=== PATIENT | male | born 1970 | race Two or more races ===

== ENCOUNTER → 2020-12-12 14:47 | Outpatient (BNVA) | payer SELFPAY | PROVIDERS: Visit Provider Physician Assistant | DX: Z02.79 Encounter for issue of other medical certificate (principal) ==

== ENCOUNTER 2021-06-12 07:46 | Emergency (ER) | payer OTHER, SELFPAY ==
--- NOTE | ~2021-06-12 | XR_ITS ---
EXAMINATION: XR HAND, RIGHT CLINICAL INFORMATION: Trauma COMPARISON: None TECHNIQUE: PA, lateral, and oblique views of the right hand. FINDINGS: Bone alignment is normal. No fracture or dislocation is seen. Joint spaces are normal. There is a dressing over the dorsal DIP joint of the third finger. This lowers the sensitivity for detection of soft tissue foreign body. If there is clinical suspicion of foreign body, repeat exam without the overlying dressing should be considered. There may be soft tissue swelling over the volar distal tuft of the third finger. XR/XR hand RT 2V IMPRESSION: No fracture is seen. Surgical dressing over the dorsal DIP joint of the third finger. Repeat imaging without the dressing should be considered if there is clinical suspicion of soft tissue foreign body.
--- NOTE | 2021-06-12 08:24 | ED_ITS ---
HPI - Extremity Problem General Chief complaint: Wound/Laceration <MELCHOR Giraldo Last Filed: 06/12/21 11:28> Stated complaint: finger injury - work relate <MELCHOR Giraldo Last Filed: 06/12/21 11:28> Time Seen by Provider: 06/12/21 08:24 <MELCHOR Giraldo Last Filed: 06/12/21 11:28> Source: patient and translator interpreter <MELCHOR Giraldo Last Filed: 06/12/21 11:28> Mode of arrival: ambulatory <MELCHOR Giraldo Last Filed: 06/12/21 11:28> Limitations: language barrier <MELCHOR Giraldo Last Filed: 06/12/21 11:28> History of Present Illness HPI Narrative: Patient is a 51 year old male presenting to the emergency department today with a right 3rd finger injury. 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 Patient denies any other injury from the incident. Patient states he does not know when his last tetanus shot was. Patient denies any numbness or tingling in the right upper extremity. Patient denies any loss of consciousness with the incident. Patient denies any dizziness, lightheadedness, abdominal pain, nausea, vomiting, fever, chills, blurry vision, double vision, loss of vision, chest pain, difficulty breathing, shortness of breath, back pain, night sweats, pain with urination, increased urinary frequency, increased urinary urgency, blood in his urine or stool, syncope or a near syncopal episode, bowel incontinence, bladder incontinence, bowel retention, bladder retention, or any other complaints at this time. <MELCHOR Giraldo - Last Filed: 06/12/21 11:28> MD Complaint: extremity pain <MELCHOR Giraldo Last Filed: 06/12/21 11:28> Onset (ago): minute(s) <MELCHOR Giraldo Last Filed: 06/12/21 11:28> Pain Consistency: constant <MELCHOR Giraldo Last Filed: 06/12/21 11:28> Location: right (3rd finger) <MELCHOR Giraldo Last Filed: 06/12/21 11:28> Severity scale (1-10): 4 <MELCHOR Giraldo - Last Filed: 06/12/21 11:28> Quality: aching <MELCHOR Giraldo - Last Filed: 06/12/21 11:28> Radiation: none <MELCHOR Giraldo Last Filed: 06/12/21 11:28> Relieving factors: nothing <MELCHOR Giraldo - Last Filed: 06/12/21 11:28> Exacerbating factors: nothing <MELCHOR Giraldo - Last Filed: 06/12/21 11:28> Associated symptoms: denies other symptoms <MELCHOR Giraldo - Last Filed: 06/12/21 11:28> Related Data Home medications: Previous Rx's Medication Instructions Recorded cephalexin 500 mg capsule 500 mg PO Q6H 7 Days #28 cap 06/12/21 <MELCHOR Giraldo Last Filed: 06/12/21 11:28> Allergies/Adverse reactions: Allergies Allergy/AdvReac Type Severity Reaction Status Date / Time No Known Allergies Allergy Verified 06/12/21 08:37 <MELCHOR Giraldo - Last Filed: 06/12/21 11:28> Review of Systems Constitutional: Constitutional: Reports no additional constitutional complaints, Denies chills, Denies fever(s) and Denies night sweats <MELCHOR Giraldo - Last Filed: 06/12/21 11:28> Eyes: Eyes: Reports no additional eye complaints, Denies blurry vision, Denies change in vision, Denies diplopia, Denies eye discharge, Denies loss of vision and Denies eye pain <MELCHOR Giraldo - Last Filed: 06/12/21 11:28> ENT: Denies dizziness <MELCHOR Giraldo - Last Filed: 06/12/21 11:28> Cardiovascular: Cardiovascular: Reports no additional cardiovascular complaints, Denies chest pain, Denies lightheadedness, Denies Loss of Consciousness and Denies dyspnea <MELCHOR Giraldo - Last Filed: 06/12/21 11:28> Respiratory: Respiratory: Reports no additional respiratory complaints and Denies dyspnea <MELCHOR Giraldo - Last Filed: 06/12/21 11:28> Gastrointestinal: Gastrointestinal: Reports no additional gastrointestinal complaints, Denies abdominal pain, Denies melena, Denies hematochezia, Denies change in bowel habits and Denies change in stool character <MELCHOR Giraldo - Last Filed: 06/12/21 11:28> Genitourinary: Genitourinary: Reports no additional male genitourinary complaints, Denies hematuria, Denies oliguria, Denies difficulty urinating, Denies dysuria, Denies urinary frequency, Denies urinary hesitancy, Denies urinary incontinence and Denies urinary urgency <MELCHOR Giraldo - Last Filed: 06/12/21 11:28> Musculoskeletal: Musculoskeletal: Reports no additional musculoskeletal complaints, Denies numbness and Denies tingling <MELCHOR Giraldo - Last Filed: 06/12/21 11:28> Integumentary/Breasts: Comments: laceration to the right 3rd finger <MELCHOR Giraldo - Last Filed: 06/12/21 11:28> Neurologic: Denies dizziness, Denies loss of vision, Denies numbness and Denies tingling <MELCHOR Giraldo - Last Filed: 06/12/21 11:28> Psychiatric: Psychiatric: Reports no additional psychiatric complaints <MELCHOR Giraldo - Last Filed: 06/12/21 11:28> Endocrine: Endocrine: Reports no additional endocrine complaints <MELCHOR Giraldo - Last Filed: 06/12/21 11:28> Hematologic/Lymphatic: Hematologic/Lymphatic: Reports no additional hematologic/lymphatic complaints <MELCHOR Giraldo - Last Filed: 06/12/21 11:28> Allergic/Immunologic: Allergic/Immunologic: Reports no additional allergic/immunologic complaints <MELCHOR Giraldo - Last Filed: 06/12/21 11:28> PMFSH Past Medical History Attestation statement: The following information was validated with the patient. <MELCHOR Giraldo - Last Filed: 06/12/21 11:28> Medical History: Medical History No known health problems <MELCHOR Giraldo Last Filed: 06/12/21 11:28> Social History Social History: Social History Advance Directives: No Advance Directives Information Provided: No <MELCHOR Giraldo - Last Filed: 06/12/21 11:28> Physical Exam Vital Signs: Vital Signs: Last Vital Signs Temp 97.9 F 06/12/21 09:15 Pulse 61 06/12/21 09:15 Resp 15 06/12/21 09:15 BP 139/79 06/12/21 09:15 Pulse Ox 97 06/12/21 09:15 BMI result Body Mass Index 32.1 <MELCHOR Giraldo - Last Filed: 06/12/21 11:28> Vital Signs: Last Vital Signs Temp 97.9 F 06/12/21 09:15 Pulse 61 06/12/21 09:15 Resp 15 06/12/21 09:15 BP 139/79 06/12/21 09:15 Pulse Ox 97 06/12/21 09:15 BMI result Body Mass Index 32.1 <Fran Hdz MD - Last Filed: 06/12/21 16:28> Const: General: cooperative, no acute distress, alert and awake <MELCHOR Giraldo - Last Filed: 06/12/21 11:28> Nutritional Appearance: well nourished <MELCHOR Giraldo - Last Filed: 06/12/21 11:28> Orientation/consciousness: patient oriented x3 <MELCHOR Giraldo - Last Filed: 06/12/21 11:28> Limitations: no limitations <MELCHOR Giraldo Last Filed: 06/12/21 11:28> HENMT: Head: Yes normal to inspection and Yes atraumatic <MELCHOR Giraldo - Last Filed: 06/12/21 11:28> Ears: hearing grossly normal bilaterally and external ears normal <MELCHOR Giraldo - Last Filed: 06/12/21 11:28> General nose exam: Normal external nose present, no nasal discharge noted and no epistaxis <MELCHOR Giraldo - Last Filed: 06/12/21 11:28> Face and sinus: Yes normal facial exam, No abrasion and No laceration <MELCHOR Giraldo - Last Filed: 06/12/21 11:28> Mouth: Normal oral and palatal mucosa present, no drooling and no muffled voice <Nathaly Davis OR - Last Filed: 06/12/21 11:28> Eyes: General: appearance normal, both eyes and all related structures <Nathaly Davis OR - Last Filed: 06/12/21 11:28> Periorbital: periorbital findings normal <Nathaly Davis OR - Last Filed: 06/12/21 11:28> Eyelids: Yes eyelids normal <Nathaly Davis OR - Last Filed: 06/12/21 11:28> Conjunctivae: conjunctivae normal <Nathaly Davis, OR - Last Filed: 06/12/21 11:28> Pupils: Equal, round and reactive pupils present <Nathaly Davis OR - Last Filed: 06/12/21 11:28> EOM: EOMs intact bilaterally <Nathaly Davis OR - Last Filed: 06/12/21 11:28> Neck: Neck: Yes normal visual inspection, Yes full ROM and Yes no lymphadenopathy <Nathaly Davis OR - Last Filed: 06/12/21 11:28> Chest: Chest palpation & inspection: normal inspection of the chest <Nathaly Davis OR - Last Filed: 06/12/21 11:28> Resp: Effort & Inspection: normal respiratory effort and able to speak in complete sentences <Nathaly Davis OR - Last Filed: 06/12/21 11:28> Auscultation: clear to auscultation bilaterally <Nathaly Davis OR - Last Filed: 06/12/21 11:28> Cardio: Rate: regular rate <Nathaly Davis OR - Last Filed: 06/12/21 11:28> Rhythm: regular rhythm <Nathaly Davis OR - Last Filed: 06/12/21 11:28> GI: Inspection: Yes normal to inspection <Nathaly Davis OR - Last Filed: 06/12/21 11:28> Skin: Other: 1.5cm laceration to the dorsal aspect of the right 3rd digit just inferior to the DIP joint <Nathaly Davis OR - Last Filed: 06/12/21 11:28> Neuro: General: patient oriented x3 and moves all extremities <Nathaly Davis OR - Last Filed: 06/12/21 11:28> Cranial nerves: Yes Equal, round and reactive pupils present <Nathaly Davis MELCHOR - Last Filed: 06/12/21 11:28> Cognition (Neuro): normal cognition <Nathaly Davis MELCHOR - Last Filed: 06/12/21 11:28> Motor exam (neuro): 5/5 motor strength present throughout <Nathaly DavisMELCHOR - Last Filed: 06/12/21 11:28> Sensory Exam: Normal double simultaneous stimulation for sensation <Nathaly DavisMELCHOR - Last Filed: 06/12/21 11:28> Coordination: [id number] test normal <Nathaly DavisMELCHOR - Last Filed: 06/12/21 11:28> Extrem: General: Yes full ROM and Yes capillary refill normal <Nathaly DavisMELCHOR - Last Filed: 06/12/21 11:28> Psych: Appearance: grossly normal <Nathaly DavisMELCHOR - Last Filed: 06/12/21 11:28> Mental Status: mental status grossly normal <Nathaly DavisMELCHOR - Last Filed: 06/12/21 11:28> Affect: normal affect <Nathaly DavisMELCHOR - Last Filed: 06/12/21 11:28> Attitude: cooperative <Nathaly DavisMELCHOR - Last Filed: 06/12/21 11:28> Thought process: Normal thought process present <Nathaly DavisMELCHOR - Last Filed: 06/12/21 11:28> Thought content: Normal thought content present <Nathaly DavisMELCHOR - Last Filed: 06/12/21 11:28> Insight: Good insight present (Psych) <Nathaly DavisMELCHOR - Last Filed: 06/12/21 11:28> Course Course Course Narrative: Patient's right hand x-ray impression was: No fracture, surgical dressing over the dorsal DIP joint of the third finger. Repeat imaging without the dressing should be considered if there is clinical suspicion of soft tissue foreign body. <Nathaly DavisMELCHOR - Last Filed: 06/12/21 11:28> MDM - Extremity (Nontraumatic) MDM Narrative Medical decision making narrative: Patient is a 51 year old male presenting to the emergency department today with a right 3rd finger laceration. Patient's physical exam showed a 1.5cm laceration to the dorsal aspect of the right 3rd finger, just inferior to the DIP joint. Patient's ROM, circulation, strength, and sensation were in tact to the entire right upper extremity including the right fingers, right hand, right wrist, right forearm, right elbow, and right upper arm. Patient's right hand x-ray showed no acute process. I explained my physical exam findings as well as all test results to the patient. I answered all questions asked by the patient. Patient's laceration was repaired, per procedure note, that incident. I stressed the importance of the patient having his sutures removed in 10-14 days. I stressed the importance to the patient keeping the sutured area clean and dry. I stressed the importance to the patient performing daily wound checks, and daily dressing changes. I stressed the importance of the patient taking his medication as prescribed. I stressed the importance of the patient following up with his primary care provider. I stressed the importance of the patient returning to the emergency department immediately if his symptoms were to worsen or if he were to develop any dizziness, shortness of breath, difficulty breathing, chest pain, blurry vision, loss of vision, nausea, vomiting, abdominal pain, fever, chills, back pain, or any other complaints. Patient verbalized agreement and understanding with this treatment plan and discharge. <MELCHOR Giraldo Last Filed: 06/12/21 11:28> Differential Diagnosis Differential diagnosis: Unlikely gout (Laceration, abrasion, finger injury) <MELCHOR Giraldo Last Filed: 06/12/21 11:28> Medical Records Attestation: I reviewed the patient's medical records. <MELCHOR Giraldo Last Filed: 06/12/21 11:28> Procedures Laceration Laceration 1: Site: hand (right 3rd finger) <MELCHOR Giraldo Last Filed: 06/12/21 11:28> Side (If applicable): right <MELCHOR Giraldo Last Filed: 06/12/21 11:28> Size (cm): 1.5 <MELCHOR Giraldo Last Filed: 06/12/21 11:28> Description: linear <MELCHOR Giraldo Last Filed: 06/12/21 11:28> Depth: simple, single layer <MELCHOR Giraldo Last Filed: 06/12/21 11:28> Local Anesthetic: lidocaine 1% and with epi <MELCHOR Giraldo - Last Filed: 06/12/21 11:28> Amount of anesthesia used (mL): 2 <MELCHOR Giraldo - Last Filed: 06/12/21 11:28> Pre-repair: irrigated extensively and deep structures intact <MELCHOR Giraldo - Last Filed: 06/12/21 11:28> Skin layer closed with: nylon <MELCHOR Giraldo - Last Filed: 06/12/21 11:28> Size (cm): 5-0 <MELCHOR Giraldo - Last Filed: 06/12/21 11:28> Number of sutures: 5 <MELCHOR Giraldo - Last Filed: 06/12/21 11:28> Technique: simple, interrupted <MELCHOR Giraldo - Last Filed: 06/12/21 11:28> Technique: simple, interrupted <MELCHOR Giraldo - Last Filed: 06/12/21 11:28> Discharge Plan Discharge Clinical Impression: Laceration <MELCHOR Giraldo - Last Filed: 06/12/21 11:28> Patient Disposition: Home, Self-Care <MELCHOR Giraldo - Last Filed: 06/12/21 11:28> Instructions: Finger Laceration (ED) <MELCHOR Giraldo - Last Filed: 06/12/21 11:28> Additional Instructions: Have sutures removed in 10-14 days. Do NOT soak sutured area. Keep sutured area covered during all activity. <MELCHOR Giraldo - Last Filed: 06/12/21 11:28> Prescriptions: New cephalexin 500 mg capsule 500 mg PO Q6H 7 Days Qty: 28 RF: 0 <MELCHOR Giraldo - Last Filed: 06/12/21 11:28> Interventions: ED Discharge Assessment Last Done: 06/12/21 11:30 <MELCHOR Giraldo Last Filed: 06/12/21 11:28> Discharge Date/Time: 06/12/21 11:31 <MELCHOR Giraldo - Last Filed: 06/12/21 11:28> Print Language: Emirati <MELCHOR Giraldo - Last Filed: 06/12/21 11:28>
[2021-06-12] MEDS: Diphth,Pertus(ACell),Tet Adult 0.5 ML SYRINGE IM (09:05)
[2021-06-12 09:15] VITALS: BP 139/79; PULSE 61; RESP 15; TEMP 36.6; O2SAT 97; BMI 32.1
== END 2021-06-12 11:31 | disposition home or self-care (01) ==
PROVIDERS: Emergency Provider Emergency Medicine
DX: S61.212A Laceration without foreign body of right middle finger without damage to nail, initial encounter (principal); S60.412A Abrasion of right middle finger, initial encounter; W26.0XXA Contact with knife, initial encounter; Y93.9 Activity, unspecified; Y92.9 Unspecified place or not applicable; Y99.0 Civilian activity done for income or pay; Z79.899 Other long term (current) drug therapy
CPT/HCPCS: 12001; 73120; 90471; 90715; 99283; 99284

== ENCOUNTER 2021-06-26 10:02 | Emergency (ER) | payer OTHER, SELFPAY ==
[2021-06-26 10:08] VITALS: BP 144/105; PULSE 64; RESP 16; TEMP 36.8; O2SAT 96; BMI 31.4
--- NOTE | 2021-06-26 10:42 | ED.WOUNDLAC ---
HPI - Wound/Laceration General Chief Complaint: Wound/Laceration Stated Complaint: Suture removal Time Seen by Provider: 06/26/21 10:24 Source: patient and construction manager Mode of arrival: ambulatory Limitations: language barrier History of Present Illness HPI narrative: 51-year-old male here for suture removal from his right middle digit. Patient tells me he had 4 sutures placed 14 days ago. He tells me there was swelling after the stitches were placed and so some of the sutures moved. He denies any redness, drainage, fever or difficulty with moving the digit. Related Data Previous Rx's Medication Instructions Recorded cephalexin 500 mg capsule 500 mg PO Q6H 7 Days #28 cap 06/12/21 Allergies Allergy/AdvReac Type Severity Reaction Status Date / Time No Known Allergies Allergy Verified 06/12/21 08:37 Review of Systems Review of Systems: Yes all other systems are reviewed and are negative Constitutional: Constitutional: Reports no additional constitutional complaints, Denies body ache(s), Denies chills, Denies fever(s), Denies headache(s) and Denies weakness Eyes: Eyes: Reports no additional eye complaints and Denies change in vision ENT: Reports system reviewed and no additional complaints, except as documented, Denies dizziness, Denies headache(s), Denies nasal congestion, Denies nasal discharge and Denies neck pain Cardiovascular: Cardiovascular: Reports no additional cardiovascular complaints, Denies chest pain, Denies leg edema and Denies dyspnea Respiratory: Respiratory: Reports no additional respiratory complaints, Denies cough and Denies dyspnea Gastrointestinal: Gastrointestinal: Reports no additional gastrointestinal complaints, Denies abdominal pain, Denies diarrhea, Denies nausea and Denies vomiting Genitourinary: Genitourinary: Denies urinary incontinence Musculoskeletal: Musculoskeletal: Reports no additional musculoskeletal complaints, Denies back pain, Denies arthralgias, Denies joint swelling, Denies neck pain, Denies numbness and Denies tingling Integumentary/Breasts: Skin/Breast: Reports system reviewed and no additional complaints, except as docu and Denies rash Neurologic: Reports system reviewed and no additional complaints, except as documented, Denies Abnormal speech present, Denies dizziness, Denies headache(s), Denies numbness, Denies tingling and Denies weakness [facility] Past Medical History Attestation statement: The following information was validated with the patient. Source: old records reviewed and nursing notes reviewed Medical History No known health problems Social History Social History Advance Directives: No Advance Directives Information Provided: No Physical Exam Vital Signs: Vital Signs: Last Vital Signs Temp 98.2 F 06/26/21 10:08 Pulse 64 06/26/21 10:08 Resp 16 06/26/21 10:08 BP 144/105 H 06/26/21 10:08 Pulse Ox 96 06/26/21 10:08 BMI result Body Mass Index 31.4 Const: General: cooperative, healthy appearing, comfortable and no acute distress Orientation/consciousness: patient oriented x3 Limitations: no limitations HENMT: Head: Yes normal to inspection Ears: hearing grossly normal bilaterally General nose exam: Normal external nose present Face and sinus: Yes normal facial exam Mouth: Normal oral and palatal mucosa present Throat: Yes posterior oropharynx normal Eyes: General: appearance normal, both eyes and all related structures Pupils: Equal, round and reactive pupils present Neck: Neck: Yes normal visual inspection Chest: Chest palpation & inspection: normal inspection of the chest Resp: Effort & Inspection: normal respiratory effort Auscultation: clear to auscultation bilaterally Cardio: Rate: regular rate Rhythm: regular rhythm Peripheral pulses: Peripheral pulses 2+ throughout GI: Inspection: Yes normal to inspection Palpation (GI): Soft to palpation and nontender Auscultation: normal bowel sounds Back/Spine/Pelvis: Thoracic/Lumbar Spine: thoracic and lumbar spine normal to inspection Skin: General skin exam: no rashes or lesions noted Neuro: General: patient oriented x3, no focal motor deficits and normal sensation to monofilament Cranial nerves: Yes Equal, round and reactive pupils present Cognition (Neuro): normal cognition Speech: No Abnormal speech present Gait exam (Neuro): Normal gait present Motor exam (neuro): 5/5 motor strength present throughout Extrem: Other: Over the dorsal D IP there is a laceration noted. There is slight dehiscence of the wound and the sutures are noted on the more distal aspect of the laceration. there is no drainage, redness or pain in the patient is able to move the digit with flexion and extension with no difficulty General: Yes normal to inspection Course Course Course Narrative: see suture removal procedure note. there was slight dehiscence of the wound with the sutures displaced distally. there is no fluctuance or drainage or signs of infection. the site was cleansed, topical antibiotic ointment applied and dressing reviewed worrisome signs and symptoms of when to return to the emergency department. Comfortable discharge home. MDM - Wound/Laceration Medical Records Attestation: I reviewed the patient's medical records. Lab Data Attestation: I reviewed the patient's lab results. Procedures Procedure Narrative Procedure Narrative: Four sutures removed from right distal middle finger. no complication Discharge Plan Discharge Clinical Impression: Visit for suture removal Patient Disposition: Home, Self-Care Instructions: Stitches Removal (ED) Additional Instructions: wash with soap and water daily Apply topical antibiotic ointment return for fever, redness or streaking up the arm, purulent drainage Prescriptions: No Action cephalexin 500 mg capsule 500 mg PO Q6H 7 Days Qty: 28 0RF Referrals: Physician,Unknown J [Primary Care Provider] - 2 days Print Language: Swedish
== END 2021-06-26 10:50 | disposition home or self-care (01) ==
PROVIDERS: Emergency Provider Emergency Medicine
DX: Z48.02 Encounter for removal of sutures (principal)
CPT/HCPCS: 99283